=== PATIENT | female | born 2000 | race Caucasian/White ===

== ENCOUNTER 2022-07-02 09:22 | Emergency (ER) | payer BC, SELFPAY ==
--- NOTE | ~2022-07-02 | CT_ITS ---
EXAMINATION: CT abdomen pelvis w con DATE: 07/02/2022 11:04 INDICATION: Left flank pain, nausea and vomiting TECHNIQUE: Computed tomography (CT) of the abdomen and pelvis was performed with 100 mL Omnipaque-350 intravenous contrast. Automated exposure control and iterative reconstruction technique were employe d. The dose-length product was 635.95 mGy-cm. COMPARISON: None FINDINGS: Lung bases are clear. Heart size is normal. No pericardial or pleural effusion. Liver, gallbladder, s pleen, pancreas, bilateral adrenal glands and right kidney are normal. 3 mm obstructing stone at the left ureterovesicular junction with mild left hydroureteronephrosis and delayed left nephrogram. Mild urothelial enhancement along the ureter and subtle haziness to the left perirenal fat which raises s ome concern for associated ascending urinary tract infection and would correlate with urinalysis. Iker dder, uterus and bilateral adnexa are unremarkable. Bowels are normal. The appendix is not visualized . No pericecal inflammatory change to suggest acute appendicitis. Small amount of likely physiologic free fluid in the cul-de-sac. No abscess or free intraperitoneal gas. No pathologically enlarged abdo papa or pelvic lymphadenopathy. Mild lumbar spondylosis with disc bulges resulting in minimal centra l canal stenosis at L3-L4 through L5-S1. IMPRESSION: 1. Obstructing 3 mm left renal stone with mild left hydronephrosis and delayed nephrogram. Correlate with urinalysis to exclude associated ascending urinary tract infection. Reviewed, dictated and finalized at location A. [employer] IMPRESSION: 1. Obstructing 3 mm left renal stone with mild left hydronephrosis and delayed nephrogram. Correlate with urinalysis to exclude associated ascending urinary t ract infection.
--- NOTE | ~2022-07-02 | XR_ITS ---
EXAMINATION: XR abdomen/kub 1V INDICATION: Left-sided kidney stone TECHNIQUE: Supine views of the abdomen were obtained on 2 radiographs. COMPARISON: CT from today FINDINGS: Contrast from earlier CT examination partially opacifies the urinary tract. There is a pers istent left nephrogram. There is mild left distal hydroureter ending at a 3 mm stone at the ureterove sicular junction. The bowel gas pattern is normal. The lung bases are clear. IMPRESSION: 1. 3 mm stone at the left ureterovesicular junction. Reviewed, dictated and finalized at location L. [employer]
[2022-07-02 09:25] VITALS: BP 123/76; PULSE 97; RESP 16; TEMP 36.9; O2SAT 100
--- NOTE | 2022-07-02 09:59 | ED.ABDPAIN ---
HPI - Abdominal Pain General Chief Complaint: Abdominal Pain Stated Complaint: lower back and abd pain since 2199 Time Seen by Provider: 07/02/22 09:53 History of Present Illness HPI narrative: Patient is a 21-year-old female here for evaluation of left flank pain for the past day. Patient states that the pain came on while she was at rest, has been severe ever since. She attempted ibuprofen last night but shortly vomited afterwards. She has been vomiting nonbloody/nonbilious emesis since the pain came on. Notes urinary frequency over the past 2 weeks but no dysuria, urgency or hematuria. No fevers, diarrhea or constipation. She was sent from an urgent care facility for further evaluation of her pain. Related Data Home Medications Medication Instructions Recorded Confirmed L norgest/E estradiol-E estrad 07/02/22 0.15 mg-30 mcg (84)/10 mcg(7) tabs,3mos (Seasonique) bupropion HCl 150 mg 24 hr tablet, 150 mg PO QAM 07/02/22 extended release (Wellbutrin XL) buspirone 15 mg tablet 15 mg PO BID 07/02/22 cetirizine 10 mg tablet (Zyrtec) 10 mg PO DAILY 07/02/22 montelukast 10 mg tablet 10 mg PO HS 07/02/22 (Singulair) Allergies Allergy/AdvReac Type Severity Reaction Status Date / Time cefaclor [From [facility]] Allergy Anaphylaxis Verified 07/02/22 09:58 Review of Systems Review of Systems: Gen.: Denies fevers or chills Eyes: Denies eye pain or visual change ENT: Denies congestion Respiratory: Denies shortness of breath or cough CV: Denies chest pain or palpitations GI: Reports left flank pain, nausea and vomiting. denies burning, urgency, frequency or hematuria Musculoskeletal: Denies back pain or muscle pain Neuro: Denies numbness, tingling, weakness or focal weakness Skin: Denies rash Except as documented, all other systems reviewed and negative Exam Narrative: APPEARANCE: Uncomfortable appearing Head: Normocephalic and atraumatic. EYES: PERRLA/EOMI, conjunctivae clear NOSE: No nasal drainage EARS: External ear normal in appearance THROAT: Oropharynx is clear. Mucous membranes are moist. NECK: Supple. No adenopathy, no masses. RESPIRATORY: Airway patent, respirations nonlabored. Clear to auscultation bilaterally, no rales, rhonchi, wheezing. CARDIOVASCULAR: Regular rate and rhythm without murmurs, rubs, or gallops. ABDOMINAL: Normoactive bowel sounds. Soft, nontender, nondistended. No rebound tenderness or guarding. MUSCULOSKELETAL: Extremities are warm and well-perfused. Moves all extremities well. No edema. NEURO: Normal speech. No focal neurologic deficits. SKIN: Skin is warm and dry. No rashes. PSYCHIATRIC: Normal affect/mood.. Course Vital Signs Vital signs: Vital Signs Temperature 98.5 F 07/02/22 09:25 Pulse Rate 97 07/02/22 09:25 Respiratory Rate 16 07/02/22 09:25 Blood Pressure 123/76 07/02/22 09:25 Pulse Oximetry 100 07/02/22 09:25 Oxygen Delivery Room Air 07/02/22 09:25 Temperature 98.5 F 07/02/22 09:25 Pulse Rate 97 07/02/22 09:25 Respiratory Rate 16 07/02/22 09:25 Blood Pressure 123/76 07/02/22 09:25 Pulse Oximetry 100 07/02/22 09:25 Oxygen Delivery Room Air 07/02/22 09:25 MDM - Abdominal Pain MDM Narrative Medical decision making narrative: 21-year-old female here for evaluation of left flank pain over the past day. Patient is uncomfortable appearing but has no CVA tenderness. She has a white count of 14, creatinine is elevated at 1.5, do not have a baseline to compare to. UA with no evidence of infection. She does have evidence of a small distal obstructing kidney stone. She was given Toradol in the ED with improvement of her symptoms. Spoke with Dr. Ye, urologist, regarding patient's work-up, agrees with plan for outpatient management and follow-up, will recheck BMP in clinic. Stones will likely pass on their own. Discussed return precautions and she voiced understanding. Lab Data 07/02/22 09:43
[2022-07-02 10:09] LABS: Basophils Percent Auto 0.1 % (0.2-1.2); Hematocrit 38.9 % (37.0-47.0); Hemoglobin 12.9 g/dL (12.0-15.0); Immature Granulocyte Absolute 0.07 K/mm3 (0.00-0.031); Immature Granulocyte Percent A 0.5 % (0-0.5); Lymphocytes Absolute Auto 1.05 K/mm3 (0.9-3.2); Lymphocytes Percent Auto 7.5 % (18.3-44.2); Mean Corpuscular HGB Conc 33.2 g/dl (32-36); Mean Corpuscular Hemoglobin 29.1 pg (26-34); Mean Corpuscular Volume 87.8 fl (80-100); Mean Platelet Volume 9.7 fl (7.4-10.4); Monocytes Absolute Auto 0.6 K/mm3 (0.1-0.6); Monocytes Percent Auto 4.4 % (2.6-8.5); Neutrophils Absolute Auto 12.2 K/mm3 (1.3-6.7); Neutrophils Percent Auto 87.5 % (45.5-73.1); Platelet Count Result 371 k/mm3 (150-375); Red Blood Count 4.43 M/mm3 (4.2-5.4); Red Cell Distribution Width 12.8 % (11.5-14.5)
[2022-07-02] MEDS: ONDANSETRON INJ 4 MG/2 ML VIAL IV PUSH (10:09)
[2022-07-02 10:11] LABS: Add Urine Microscopic? YES; Appearance Urine Clear (Clear); Bilirubin Urine Negative (Negative); Blood Urine Negative (Negative); Color Urine Yellow (Yellow); Glucose Urine UA Negative (Negative); Ketones Urine 1+ mg/dL (Negative); Leukocyte Esterase Ur Negative LEU/UL (Negative); Nitrate Urine Negative (Negative); Protein Urine Negative (Negative); Specific Grav Ur 1.015 (1.001-1.035); Urobilinogen Urine 0.2 mg/dL (<2.0); pH Urine 8.5 (5.0-9.0)
[2022-07-02 10:16] LABS: Amorphous Sediment Urine Few; Mucus Urine Rare /lpf; Squamous Epithelial Cell Urine Rare /hpf (Few)
[2022-07-02 10:17] LABS: Alanine Aminotransferase 31 U/L (6-35); Albumin Level 4.6 g/dL (3.5-5.1); Alkaline Phosphatase 69 U/L (38-126); Anion Gap 9 mmol/L (8-16); Aspartate Amino Transferase 29 U/L (14-36); Bilirubin,Total 0.5 mg/dL (0.2-1.3); Blood Urea Nitrogen 16 mg/dL (7-17); Calcium 9.1 mg/dL (8.4-10.2); Carbon Dioxide 25 mmol/L (22-30); Chloride 102 mmol/L (98-107); Estimated CRCL calculation 58 ml/min; Estimated Glomerular Filt Rate 43; Glucose 109 mg/dL (65-110); Potassium 4.3 mmol/L (3.4-5.0); Sodium 136 mmol/L (137-145)
[2022-07-02] MEDS: SODIUM CHLORIDE 0.9% IV 1,000 ML 999 ML IV CONT (10:17)
[2022-07-02 10:35] LABS: RBC Urine 0-2 /hpf (0-2); WBC Urine 0-3 /hpf
[2022-07-02] MEDS: KETOROLAC 15 MG/ML VIAL (*BKC) IV PUSH (11:30)
== END 2022-07-02 13:44 | disposition home or self-care (01) ==
PROVIDERS: Family Medicine; Emergency Provider Physician Assistant
DX: N20.1 Calculus of ureter (principal)
CPT/HCPCS: 36415; 74018; 74177; 80053; 81001; 81025; 85025; 96361; 96374; 96375; 99284; J0131; J1885; J2405; J7030; Q9967